=== PATIENT | male | born 1995 | race African-American/Black ===

== ENCOUNTER 2024-08-10 10:24 | Emergency (ER) | payer OTHER ==
[~2024-08-10] VITALS: Ht 172.7 cm; Wt 68.0 kg
[2024-08-10] VITALS (54 sets, daily range): BP systolic 121–197; BP diastolic 65–115
[2024-08-10] MEDS ORDERED: SODIUM CHLORIDE 0.9% 1,000 ML IV ONE ×3 (10:35→11:30)
[2024-08-10] MEDS ORDERED: ROCURONIUM BROMIDE 10 MG/ML 5ML VIAL IV ONE (10:45)
[2024-08-10] MEDS ORDERED: ETOMIDATE 20 MG/10 ML SDV IV ONE (10:45)
[2024-08-10] MEDS ORDERED: PROPOFOL 100 ML IV ONE ×3 (10:45→15:41)
[2024-08-10 10:49] LABS: BASO% 0.2 % (0-3); HEMOGLOBIN 14.1 g/dl (14.0-18.0); IMMATURE GRANULOCYTES 0.4 % (0.0-5.0); MEAN CELL VOLUME 81.8 fL CALC (80.0-100.0); MEAN CORPUSCULAR HGB 26.2 pG CALC (26.0-32.0); NEUT# 20.71 thou/uL (1.82-7.42); NEUT% 84.4 % (42-76); RED BLOOD COUNT 5.38 mill/uL (4.70-6.10); RED CELL DISTRI WIDTH 12.2 % (11.5-15.5)
[2024-08-10 10:59] LABS: ALBUMIN 5.5 g/dL (3.2-5.0); ALKALINE PHOSPHATASE 68 u/l (38-126); BILIRUBIN, TOTAL 0.4 mg/dL (0.2-1.3); BUN 12 mg/dL (9-20); BUN/CREATININE RATIO 5 (12-20 (CALC)); CHLORIDE 102 mmol/l (95-108); CREATININE 2.3 mg/dL (0.7-1.3); ESTIMATED GFR 38 ML/MIN (>=90 (CALC)); SGOT/AST 49 u/l (17-59); SODIUM 139 mmol/l (137-146); TOTAL PROTEIN 9.4 g/dL (6.3-8.2)
[2024-08-10 11:07] LABS: ANION GAP 36 (6-22 (CALC)); CARBON DIOXIDE 7 mmol/l (22-30); POTASSIUM 6.1 mmol/l (3.5-5.1)
[2024-08-10] MEDS ORDERED: KEPPRA750 M2 PO (11:12)
[2024-08-10] MEDS ORDERED: INSULIN REGULAR (HUMAN) 100 UNIT/ML INJ IV ONE (11:55)
[2024-08-10] MEDS ORDERED: CALCIUM CHLORIDE 10% 100 MG/ML 10ML SYR IV ONE (11:55)
[2024-08-10] MEDS ORDERED: DEXTROSE 10% 500 ML BAG IV ONE (12:00)
[2024-08-10 12:27] LABS: URINE BILIRUBIN - DIPSTICK Negative (NEGATIVE); URINE BLOOD DIPSTICK Moderate (NEGATIVE); URINE GLUCOSE - DIPSTICK Negative (NEGATIVE); URINE KETONE Negative (NEGATIVE); URINE LEUK ESTERASE Negative (NEGATIVE); URINE NITRITE - DIPSTICK Negative (Negative); URINE PH 5.5 (4.5-8.0); URINE PROTEIN - DIPSTICK 100 mg/dL (NEG-TRACE); URINE SPECIFIC GRAVITY >=1.030; URINE UROBILINOGEN - DIPSTICK 0.2 E.U./dL (0.2)
[2024-08-10 12:33] LABS: URINE COLOR Yellow
[2024-08-10 12:37] LABS: URINE URIC ACID CRYSTALS MANY lpf
[2024-08-10 14:07] LABS: BASO% 0.1 % (0-3); IMMATURE GRANULOCYTES 0.2 % (0.0-5.0); LYMPH% 7.1 % (15-41); MEAN CELL VOLUME 78.6 fL CALC (80.0-100.0); MEAN CORPUSCULAR HGB 25.9 pG CALC (26.0-32.0); MONO% 7.9 % (2-13); NEUT# 15.81 thou/uL (1.82-7.42); NEUT% 84.7 % (42-76); RED BLOOD COUNT 4.67 mill/uL (4.70-6.10); RED CELL DISTRI WIDTH 12.4 % (11.5-15.5)
[2024-08-10 14:14] LABS: HEMATOCRIT 36.7 % (39.0-50.0); HEMOGLOBIN 12.1 g/dl (14.0-18.0)
[2024-08-10 14:22] LABS: CREATININE 1.7 mg/dL (0.7-1.3)
[2024-08-10] MEDS ORDERED: VANCOMYCIN HCL 1 GM in SODIUM CHLORIDE 0.9% 500 ML IV ONE (14:25)
[2024-08-10] MEDS ORDERED: PIPERACILLIN Sodium-Tazobactam 3.375 GM in SODIUM CHLORIDE 0.9% 100 ML IV ONE (14:25)
[2024-08-10 14:34] LABS: POTASSIUM 3.7 mmol/l (3.5-5.1)
[2024-08-10] MEDS ORDERED: DEXTROSE 50% 50 ML/SYR IV SCH (15:00)
[2024-08-10] MEDS ORDERED: DEXTROSE 10% 500 ML IV SCH (15:00)
== END 2024-08-10 16:00 | disposition short-term general hospital (02) | DRG 100 ==
LOC: ED 10:24
PROVIDERS: Family Medicine
DX: G40.801 Other epilepsy, not intractable, with status epilepticus (principal); A41.9 Sepsis, unspecified organism; J69.0 Pneumonitis due to inhalation of food and vomit
CPT/HCPCS: J1953; J2543; J2704; J3370

== ENCOUNTER 2024-10-01 10:01 | Emergency (ER) | payer OTHER ==
[2024-10-01] VITALS (14 sets, daily range): BP systolic 122–170; BP diastolic 68–121
[~2024-10-01] VITALS: Ht 172.7 cm; Wt 72.5 kg
[~2024-10-01 10:01] MED LIST: KEPPRA750 M2 PO
[2024-10-01] MEDS ORDERED: SODIUM CHLORIDE 0.9% 1,000 ML IV ONE (10:35)
[2024-10-01] MEDS ORDERED: NALOXONE HCL 0.4 MG/ML 1ML AMP IV ONE (10:35)
[2024-10-01 11:26] LABS: BASO% 0.1 % (0-3); HEMATOCRIT 38.4 % (39.0-50.0); HEMOGLOBIN 12.2 g/dl (14.0-18.0); IMMATURE GRANULOCYTES 0.3 % (0.0-5.0); LYMPH% 3.5 % (15-41); MEAN CELL VOLUME 81.9 fL CALC (80.0-100.0); MEAN CORPUSCULAR HGB CONC 31.8 g/dL CAL (32.0-36.0); MONO% 7.7 % (2-13); NEUT# 16.76 thou/uL (1.82-7.42); NEUT% 88.4 % (42-76); RED BLOOD COUNT 4.69 mill/uL (4.70-6.10); RED CELL DISTRI WIDTH 12.7 % (11.5-15.5)
[2024-10-01 11:43] LABS: BILIRUBIN, TOTAL 0.4 mg/dL (0.2-1.3); CREATININE 1.8 mg/dL (0.7-1.3)
[2024-10-01 11:46] LABS: ALBUMIN 4.3 g/dL (3.2-5.0); POTASSIUM 4.7 mmol/l (3.5-5.1); TOTAL PROTEIN 7.2 g/dL (6.3-8.2)
[2024-10-01 12:48] LABS: URINE BILIRUBIN - DIPSTICK Negative (NEGATIVE); URINE BLOOD DIPSTICK Small (NEGATIVE); URINE GLUCOSE - DIPSTICK Negative (NEGATIVE); URINE KETONE Negative (NEGATIVE); URINE LEUK ESTERASE Negative (NEGATIVE); URINE NITRITE - DIPSTICK Negative (Negative); URINE PH 5.5 (4.5-8.0); URINE PROTEIN - DIPSTICK 30 mg/dL (NEG-TRACE); URINE UROBILINOGEN - DIPSTICK 0.2 E.U./dL (0.2)
[2024-10-01 12:59] LABS: URINE COLOR Light yellow
[2024-10-01 13:01] LABS: URINE RBC 0-2 RBC/hpf (0-5); URINE WBC 0-2 WBC/hpf (0-5)
[2024-10-01 13:02] LABS: URINE URIC ACID CRYSTALS MODERATE lpf
== END 2024-10-01 13:35 | DRG 101 ==
LOC: ED 10:01
PROVIDERS: Family Medicine
DX: G40.409 Other generalized epilepsy and epileptic syndromes, not intractable, without status epilepticus (principal)
CPT/HCPCS: J1953

== ENCOUNTER 2024-11-04 14:36 | Emergency (ER) | payer OTHER ==
[2024-11-04] VITALS (21 sets, daily range): BP systolic 92–184; BP diastolic 40–127
[~2024-11-04] VITALS: Ht 172.7 cm; Wt 74.8 kg
[2024-11-04] MEDS ORDERED: SODIUM CHLORIDE 0.9% 1,000 ML IV ONE (14:45)
[2024-11-04] MEDS ORDERED: PROPOFOL 100 ML IV ONE (14:55)
[2024-11-04] MEDS ORDERED: LACTATED RINGER'S 1,000 ML IV ONE ×5 (15:05→17:55)
[2024-11-04] MEDS ORDERED: SODIUM BICARBONATE 150 ML in DEXTROSE 5% 850 ML IV SCH (15:10)
[2024-11-04 15:20] LABS: URINE BILIRUBIN - DIPSTICK Negative (NEGATIVE); URINE BLOOD DIPSTICK Small (NEGATIVE); URINE GLUCOSE - DIPSTICK Negative (NEGATIVE); URINE KETONE Negative (NEGATIVE); URINE LEUK ESTERASE Negative (NEGATIVE); URINE NITRITE - DIPSTICK Negative (Negative); URINE PROTEIN - DIPSTICK 100 mg/dL (NEG-TRACE); URINE SPECIFIC GRAVITY 1.025; URINE UROBILINOGEN - DIPSTICK 0.2 E.U./dL (0.2)
[2024-11-04 15:30] LABS: ALKALINE PHOSPHATASE 67 u/l (38-126); BILIRUBIN, TOTAL 0.5 mg/dL (0.2-1.3); BUN 11 mg/dL (9-20); BUN/CREATININE RATIO 6 (12-20 (CALC)); CHLORIDE 103 mmol/l (95-108); CPK 334 u/l (55-170); CREATININE 1.9 mg/dL (0.7-1.3); ESTIMATED GFR 48 ML/MIN (>=90 (CALC)); ETHYL ALCOHOL 0 mg/dl (0-30); LIPASE 117 u/l (23-300); SGOT/AST 67 u/l (17-59); SODIUM 143 mmol/l (137-146)
[2024-11-04 15:31] LABS: URINE COLOR Light yellow
[2024-11-04 15:31] LABS: ANION GAP 39 (6-22 (CALC)); POTASSIUM 3.7 mmol/l (3.5-5.1)
[2024-11-04 15:32] LABS: ALBUMIN 5.5 g/dL (3.2-5.0); BASO% 0.4 % (0-3); CARBON DIOXIDE < 5 mmol/l (22-30); EOS% 0.6 % (0-8); HEMOGLOBIN 13.4 g/dl (14.0-18.0); IMMATURE GRANULOCYTES 1.4 % (0.0-5.0); LYMPH% 38.7 % (15-41); MEAN CELL VOLUME 86.4 fL CALC (80.0-100.0); MEAN CORPUSCULAR HGB CONC 30.1 g/dL CAL (32.0-36.0); MONO% 4.9 % (2-13); NEUT# 8.61 thou/uL (1.82-7.42); RED BLOOD COUNT 5.15 mill/uL (4.70-6.10); RED CELL DISTRI WIDTH 12.6 % (11.5-15.5); TOTAL PROTEIN 9.6 g/dL (6.3-8.2)
[2024-11-04 15:32] LABS: URINE BACTERIA FEW hpf; URINE SQUAMOUS EPITHELIAL CELL RARE EPI/hpf (0-FEW); URINE WBC 0-2 WBC/hpf (0-5)
[2024-11-04 15:33] LABS: HEMATOCRIT 44.5 % (39.0-50.0)
[2024-11-04] MEDS ORDERED: ACYCLOVIR SODIUM 1,000 MG VIAL IV ONE (15:55)
[2024-11-04] MEDS ORDERED: VANCOMYCIN HCL 1 GM in SODIUM CHLORIDE 0.9% 500 ML IV ONE (15:55)
[2024-11-04] MEDS ORDERED: POVIDONE IODINE 0.5 OZ/BTL TOP ONE (16:28)
[2024-11-04] MEDS ORDERED: MIDAZOLAM HCL 2 MG/2 ML VIAL IV ONE ×2 (16:55→17:20)
[2024-11-04] MEDS ORDERED: Pantoprazole Sodium 40 MG VIAL (Protonix) IV ONE (17:20)
[2024-11-04] MEDS ORDERED: LORazepam 40 MG in SODIUM CHLORIDE 180 ML IV ONE ×2 (17:20→18:30)
[2024-11-04] MEDS ORDERED: SODIUM CHLORIDE 250 ML IV ONE (17:25)
[2024-11-04] MEDS ORDERED: cefTRIAXone SODIUM 2 GM in SODIUM CHLORIDE 0.9% 100 ML IV ONE (17:30)
[2024-11-04] MEDS ORDERED: POTASSIUM CHLORIDE 20MEQ 200 ML IV ONE (17:50)
[2024-11-04] MEDS ORDERED: SODIUM CHLORIDE 0.9% 250 ML IV PRN (17:55)
[2024-11-04] MEDS ORDERED: NOREPINEPHRINE BITARTRATE 4 MG in DEXTROSE 5% 250 ML IV ONE (17:55)
== END 2024-11-04 19:06 | disposition short-term general hospital (02) | DRG 871 ==
LOC: ED 14:36
PROVIDERS: Family Medicine
PROC: 0T9B70Z Drainage of Bladder with Drainage Device, Via Natural or Artificial Opening (ICD-10-PCS; principal; 2024-11-04)
PROC: 02HV33Z Insertion of Infusion Device into Superior Vena Cava, Percutaneous Approach (ICD-10-PCS; 2024-11-04)
PROC: 009U3ZX Drainage of Spinal Canal, Percutaneous Approach, Diagnostic (ICD-10-PCS; 2024-11-04)
PROC: 3E043XZ Introduction of Vasopressor into Central Vein, Percutaneous Approach (ICD-10-PCS; 2024-11-04)
PROC: 5A1935Z Respiratory Ventilation, Less than 24 Consecutive Hours (ICD-10-PCS; 2024-11-04)
DX: A41.9 Sepsis, unspecified organism (principal); R65.21 Severe sepsis with septic shock; E87.4 Mixed disorder of acid-base balance; G40.901 Epilepsy, unspecified, not intractable, with status epilepticus; K21.9 Gastro-esophageal reflux disease without esophagitis; Z20.822 Contact with and (suspected) exposure to COVID-19
CPT/HCPCS: J0133; J0696; J1100; J1953; J2060; J2470; J2704; J3370; J3480